=== PATIENT | female | born 1970 | race African-American/Black ===

== ENCOUNTER → 2016-12-15 | Outpatient (CLI) | payer OTHER ==
[~2016-12-15] MED LIST: ALBUTEROL17 GM INH; ALEVE220 M1 PO; AZMACORT20 GM INH; CIPRO PO; CLEOCIN PO; LISINOPRIL20 MG PO; PHENERGAN PO; ULTRAM PO; VOSPIRE ER8 MG PO
--- NOTE | ~2016-12-15 | EKG ---
PATIENT: PAUL AYERS UNIT #: [id number] Ventricular Rate: 50 BPM Atrial Rate: 50 BPM P-R Interval: 146 ms QRS Duration: 82 ms Q-T Interval: 434 ms QTC Calculation(Bezet): 395 ms P [place]: 23 degrees Calculated R [place]: 49 degrees Calculated T [place]: 78 degrees Diagnosis Line: Sinus bradycardia Diagnosis Line: Nonspecific T wave abnormality Diagnosis Line: Otherwise normal ECG Diagnosis Line: When compared with ECG of 17-JAN-2016 13:53, Diagnosis Line: No significant change was found Diagnosis Line: Confirmed by RUSS GROVER MD ([id number]) on 12/15/2016 Diagnosis Line: 4:17:02 PM INTERPRETING MD: LENORE ARMSTRONG
== END | disposition home or self-care (01) ==
LOC: CAMB 10:47
DX: Z01.818 Encounter for other preprocedural examination (principal); R22.2 Localized swelling, mass and lump, trunk; R00.1 Bradycardia, unspecified; R94.39 Abnormal result of other cardiovascular function study
CPT/HCPCS: 93005

== ENCOUNTER → 2016-12-21 | Day surgery (SDC) | payer OTHER ==
--- NOTE | ~2016-12-21 | OR ---
Unit #: [id number] #: [id number] Patient: PAUL AYERS [id number] [facility]. [address] [place], [place] [address] [id number] O MR#: [id number] NAME: PAUL AYERS ROOM: Date of Procedure: 12/21/2016 Admission Date: 12/21/2016 Surgeon: Ryan Grady Jr., M.D. : 1970 Attending Physician: Ryan Grady Jr., M.D. Primary Care Physician: Leslie Molina OPERATIVE REPORT INDICATIONS FOR PROCEDURE The patient is a 46-year-old black female, who recently presented to the office complaining of severe pain in the sacral area. She was noted to have a nodular mass, compatible with a large lipoma in the area and since then has developed some enlargement of tissue in the left supraclavicular area. She is HIV positive. It was felt she needed excision of both masses. She was brought in this time for this procedure at her request. She understands the procedure including risks, including that of nerve injury, chronic pain, recurrence, infection, and bleeding and consents. 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 ANESTHESIA General. PROCEDURES PERFORMED Excision of mass of the left supraclavicular area and excision of large lipomatous mass of the sacral area with drainage of the region with Nishant-Hudson drain. DESCRIPTION OF PROCEDURE The patient was positioned in supine position. After being anesthetized, she was prepped and draped in routine fashion for removal of the mass of left supraclavicular area. A transverse incision was made over the mass. This was carried down through the dermis and to the subcutaneous tissue where there was a lipomatous mass present. That was dissected free of the surrounding tissue with both #10 blade as well as Metzenbaum scissors. After it was completely removed, hemostasis was achieved with both hemoclips as well as the Bovie cautery. The specimen was sent to pathology and after hemostasis was achieved, the subcutaneous tissue was approximated with interrupted 3-0 Vicryl sutures. Skin edges were approximated with stainless-steel skin clips and skin stapling device. Sterile dressing was applied externally. The patient was then rotated into right lateral decubitus position and then prepped and draped in routine fashion for the removal of the mass of the sacral region. A curvilinear incision was made approximately 5 inches in length over the Unit #: [id number] #: [id number] Patient: PAUL AYERS mass, which was central at the top of the gluteal fold and this was carried down through subcutaneous tissue with a #10 blade scalpel to the large lipomatous mass. The mass was dissected free of the surrounding tissue and down to the deeper subcutaneous tissue near the fascia over the sacrum. After this tissue was removed completely, it was sent to pathology. It was about 12 cm in diameter. Hemostasis was achieved with Bovie cautery. A 10 mm Nishant-Hudson drain was placed in deeper aspect of the wound and the deeper tissue was approximated with interrupted 2-0 Vicryl sutures. The subcutaneous tissue was approximated with interrupted 3-0 Vicryl sutures. Skin edges were approximated stainless-steel skin clips and skin stapling device. Sterile compressive dressing was applied externally. Estimated blood loss for both procedures were less than 100 mL. The patient received less than 1000 mL of crystalloid solution during the procedure. Sponges and instrument counts were correct x3. No drains used. Dictated by... Ryan Grady Jr. MYoni AGUILAR/jovon TD: 12/22/2016 07:30 JOB #: [id number] CC: Leslie Molina R.N. OPERATIVE REPORT Page 1 of 1 X Ryan Grady MD X PROCEDURE OPERATIVE NOTE
--- NOTE | ~2016-12-21 | OR ---
Unit #: [id number] #: [id number] Patient: PAUL AYERS [id number] [facility]. [address] [place], [place] [address] [id number] O MR#: [id number] NAME: PAUL AYERS ROOM: Date of Procedure: 12/21/2016 Admission Date: 12/21/2016 Surgeon: Ryan Grady Jr., M.D. : 1970 Attending Physician: Ryan Grady Jr., M.D. Primary Care Physician: Leslie Molina OPERATIVE REPORT ADDENDUM Sponge and instrument counts were correct x3. There was a 10 mm Nishant-Hudson drain used as noted above and no complications. The patient was taken to the recovery room with stable vital signs in satisfactory condition. Dictated by... Ryan Grady Jr., M.D. JMB/jovon TD: 12/22/2016 07:32 JOB #: [id number] OPERATIVE REPORT Page 1 of 1 X Ryan Grady MD X PROCEDURE OPERATIVE NOTE
== END | disposition home or self-care (01) ==
LOC: CSUR 10:20
DX: E65 Localized adiposity (principal); M79.89 Other specified soft tissue disorders; I10 Essential (primary) hypertension; J45.909 Unspecified asthma, uncomplicated; F17.210 Nicotine dependence, cigarettes, uncomplicated; K21.9 Gastro-esophageal reflux disease without esophagitis; Z21 Asymptomatic human immunodeficiency virus [HIV] infection status; Z80.0 Family history of malignant neoplasm of digestive organs; Z79.899 Other long term (current) drug therapy; Z98.51 Tubal ligation status; Z90.710 Acquired absence of both cervix and uterus; Z98.890 Other specified postprocedural states
CPT/HCPCS: 88304; J2250; J2405; J3010

== ENCOUNTER 2017-02-23 11:26 | Emergency (ER) | payer OTHER | END 2017-02-23 12:42 | disposition home or self-care (01) | LOC: CFTX 11:26 → CED 11:26 → CFTX 12:16 | DX: M43.6 Torticollis (principal); I10 Essential (primary) hypertension; J45.909 Unspecified asthma, uncomplicated; F41.9 Anxiety disorder, unspecified; F17.210 Nicotine dependence, cigarettes, uncomplicated; Z88.0 Allergy status to penicillin | CPT/HCPCS: 96372; 99283; J1885 ==